=== PATIENT | male | born 1985 | race Caucasian/White ===

== ENCOUNTER 2017-10-26 19:53 | Emergency (ER) | payer OTHER ==
[2017-10-26] MEDS: HYDROmorphone 2 MG/ML Syringe IVPUSH ONE ×2 (20:30→22:03)
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
== END 2017-10-26 22:50 ==
LOC: LB.ED 19:53
DX: S82.252A Displaced comminuted fracture of shaft of left tibia, initial encounter for closed fracture (principal); W22.8XXA Striking against or struck by other objects, initial encounter
CPT/HCPCS: 36415; 73700-LT; 85014; 85048; 96374; 96375; 99284-25; A0425; A0429; J1170